=== PATIENT | female | born 1965 | race Caucasian/White ===

== ENCOUNTER 2017-01-23 11:49 | Observation (INO) | payer MEDICAID, SELFPAY ==
[2017-01-23 12:07] VITALS: BMI 25.0
[2017-01-23 12:18] VITALS: BP 141/85; PULSE 66; RESP 16; TEMP 36.9
[2017-01-23 12:22] VITALS: BP 141/85; PULSE 66; RESP 16; TEMP 36.9; O2SAT 100
--- NOTE | 2017-01-23 12:22 | EKG12_ITS ---
Test Reason : Blood Pressure : / mmHG Vent. Rate : 059 BPM Atrial Rate : 059 BPM P-R Int : 128 ms QRS Dur : 084 ms QT Int : 428 ms P-R-T Axes : 047 048 043 degrees QTc Int : 423 ms Sinus bradycardia Otherwise normal ECG No previous ECGs available Confirmed by BALJEET ENGEL ([id number]), publications editor ESTHER SANCHEZ ([id number] on 02/01/2017 1:59:05 PM Referred By: JACKIE Confirmed By:BALJEET ENGEL
--- NOTE | 2017-01-23 12:25 | PCM.HP.STD ---
Problem List (1) Polysubstance (including opioids) dependence w/o physiol dependence Status: Chronic (2) Nicotine dependence Status: Chronic (3) Cocaine abuse Status: Chronic (4) Chronic hepatitis C Status: Acute (5) Opioid dependence with withdrawal Status: Acute History of Present Illness Date of Admission: 01/23/17 Chief Complaint: Opioid dependence and withdrawal The patient is a 51 year old F with history of polysubstance use including IV fentanyl and heroin being admitted through [facility] for stabilization of opioid withdrawal syndrome. Currently patient is having shaking/tremor, involuntary twitchings, restlessness, anxiety and goosebump. Denies diarrhea, chills. She has been tested positive for chronic hepatitis C in the past. She was sober of opioids for 2 years after the previous admission through [facility] in [facility]. [] Past Medical History Past Medical History (Chronic Problems): Chronic Problems Cocaine abuse (Chronic) Nicotine dependence (Chronic) Polysubstance (including opioids) dependence w/o physiol dependence (Chronic) Allergies Sulfa (Sulfonamide Antibiotics) Allergy (Verified 01/23/17 12:05) Rash Home Medications: Ambulatory Orders Medication Instructions Recorded No Known/Unobtainable [No Known 01/23/17 Home Medications] Smoking Status: Current some day smoker - *Family History Paternal History Items: No pertinent history Review of Systems Constitutional: Reports: Malaise, Fatigue. Denies: Chills, Fever, Weight Change HEENT: Denies: Head Aches, Sinus Congestion, Sinus Drainage Cardiovascular: Denies: Chest Pain, Palpitations Respiratory: Denies: Cough, Shortness of breath at rest, Sputum production Gastrointestinal: Denies: Abdominal Pain, Nausea, Vomiting Genitourinary: Denies: Dysuria Musculoskeletal: Reports: Muscle pain. Denies: Joint Pain, Joint Tenderness Skin: Denies: Rash, Wounds Neurological: Denies: Numbness, Tingling, Focal weakness Psychiatric: Reports: Anxiety. Denies: Depression, Homicidal Ideations, Suicidal Ideations Hematologic/ Lymphatic: Denies: Easy Bruising, Easy Bleeding VTE Information - Inpt Only VTE Present on Admission: No VTE Mechan Device Prophylaxis: SCD's VTE Pharm Prophylaxis ordered?: Yes Patient Problems: Active and Suspected Problems Chronic hepatitis C (Acute) Opioid dependence with withdrawal (Acute) - Physical Exam General: Alert, Oriented x3, Cooperative HEENT: Atraumatic, PERRLA, EOMI, Normocephalic Neck: Supple, No JVD, Negative Carotid Bruits Lungs: Clear to auscultation, Normal air movement, No rhonchi, No wheeze, No rales Cardiovascular: Regular rate, Regular Rhythm, Normal S1, Normal S2, No murmurs Abdomen: Bowel Sounds Present, Soft, Non Tender, Non-Distended Extremities: No edema, Capillary Refill Less than 3 Seconds Skin: No rashes, No breakdown Musculoskeletal: No Tenderness to Palpation of Joints or Extremities Neurological: Cranial nerves II-XII grossly intact Psych/Mental Status: Anxious, Restless Vital Signs Temp Pulse Resp BP Pulse Ox 98.5 F 66 16 141/85 100 01/23/17 12:22 01/23/17 12:22 01/23/17 12:22 01/23/17 12:22 01/23/17 12:22 Oxygen Delivery Method Room Air Weight: 79.3 kg Body Mass Index (BMI) 25.0 Assessment/Plan Active and Suspected Problems Chronic hepatitis C (Acute) Opioid dependence with withdrawal (Acute) The patient is a 51 year old F with history of polysubstance use including IV fentanyl and heroin being admitted through [facility] for stabilization of opioid withdrawal syndrome. Currently patient is having shaking/tremor, involuntary twitchings, restlessness, anxiety and goosebump. Denies diarrhea, chills. She has been tested positive for chronic hepatitis C in the past. She was sober of opioids for 2 years after the previous admission through [facility] program in [facility]. 1. Acute opioid withdrawal due to fentanyl and heroine IV use and dependence: She has been admitted as per [facility] protocol for medical stabilization. Started on the order set. Labs ordered. 2. Polysubstance use and dependence including opioids, crack cocaine and nicotine: Denies use of benzodiazepines alcohol. 3. Nicotine dependence: On nicotine patch. DVT prophylaxis, moderate risk: On heparin 5000 units subcu twice daily and bilateral SCDs.
--- NOTE | 2017-01-23 12:32 | HP.PCM_ITS ---
Problem List (1) Polysubstance (including opioids) dependence w/o physiol dependence Status: Chronic (2) Nicotine dependence Status: Chronic (3) Cocaine abuse Status: Chronic (4) Chronic hepatitis C Status: Acute (5) Opioid dependence with withdrawal Status: Acute History of Present Illness Date of Admission: 01/23/17 Chief Complaint: Opioid dependence and withdrawal The patient is a 51 year old F with history of polysubstance use including IV fentanyl and heroin being admitted through [facility] for stabilization of opioid withdrawal syndrome. Currently patient is having shaking/tremor, involuntary twitchings, restlessness, anxiety and goosebump. Denies diarrhea, chills. She has been tested positive for chronic hepatitis C in the past. She was sober of opioids for 2 years after the previous admission through [facility] in [facility]. [] Past Medical History Past Medical History (Chronic Problems): Chronic Problems Cocaine abuse (Chronic) Nicotine dependence (Chronic) Polysubstance (including opioids) dependence w/o physiol dependence (Chronic) Allergies Sulfa (Sulfonamide Antibiotics) Allergy (Verified 01/23/17 12:05) Rash Home Medications: Ambulatory Orders Medication Instructions Recorded No Known/Unobtainable [No Known 01/23/17 Home Medications] Smoking Status: Current some day smoker - *Family History Paternal History Items: No pertinent history Review of Systems Constitutional: Reports: Malaise, Fatigue. Denies: Chills, Fever, Weight Change HEENT: Denies: Head Aches, Sinus Congestion, Sinus Drainage Cardiovascular: Denies: Chest Pain, Palpitations Respiratory: Denies: Cough, Shortness of breath at rest, Sputum production Gastrointestinal: Denies: Abdominal Pain, Nausea, Vomiting Genitourinary: Denies: Dysuria Musculoskeletal: Reports: Muscle pain. Denies: Joint Pain, Joint Tenderness Skin: Denies: Rash, Wounds Neurological: Denies: Numbness, Tingling, Focal weakness Psychiatric: Reports: Anxiety. Denies: Depression, Homicidal Ideations, Suicidal Ideations Hematologic/ Lymphatic: Denies: Easy Bruising, Easy Bleeding VTE Information - Inpt Only VTE Present on Admission: No VTE Mechan Device Prophylaxis: SCD's VTE Pharm Prophylaxis ordered?: Yes Patient Problems: Active and Suspected Problems Chronic hepatitis C (Acute) Opioid dependence with withdrawal (Acute) - Physical Exam General: Alert, Oriented x3, Cooperative HEENT: Atraumatic, PERRLA, EOMI, Normocephalic Neck: Supple, No JVD, Negative Carotid Bruits Lungs: Clear to auscultation, Normal air movement, No rhonchi, No wheeze, No rales Cardiovascular: Regular rate, Regular Rhythm, Normal S1, Normal S2, No murmurs Abdomen: Bowel Sounds Present, Soft, Non Tender, Non-Distended Extremities: No edema, Capillary Refill Less than 3 Seconds Skin: No rashes, No breakdown Musculoskeletal: No Tenderness to Palpation of Joints or Extremities Neurological: Cranial nerves II-XII grossly intact Psych/Mental Status: Anxious, Restless Vital Signs Temp Pulse Resp BP Pulse Ox 98.5 F 66 16 141/85 100 01/23/17 12:22 01/23/17 12:22 01/23/17 12:22 01/23/17 12:22 01/23/17 12:22 Oxygen Delivery Method Room Air Weight: 79.3 kg Body Mass Index (BMI) 25.0 Assessment/Plan Active and Suspected Problems Chronic hepatitis C (Acute) Opioid dependence with withdrawal (Acute) The patient is a 51 year old F with history of polysubstance use including IV fentanyl and heroin being admitted through [facility] for stabilization of opioid withdrawal syndrome. Currently patient is having shaking/tremor, involuntary twitchings, restlessness, anxiety and goosebump. Denies diarrhea, chills. She has been tested positive for chronic hepatitis C in the past. She was sober of opioids for 2 years after the previous admission through [facility] in [facility]. 1. Acute opioid withdrawal due to fentanyl and heroine IV use and dependence: She has been admitted as per [facility] protocol for medical stabilization. Started on the order set. Labs ordered. 2. Polysubstance use and dependence including opioids, crack cocaine and nicotine: Denies use of benzodiazepines alcohol. 3. Nicotine dependence: On nicotine patch. DVT prophylaxis, moderate risk: On heparin 5000 units subcu twice daily and bilateral SCDs.
[2017-01-23] MEDS: cloNIDine HCl 0.1 MG Tablet 0.2 MG PO (12:34)
[2017-01-23] MEDS: chlordiazePOXIDE 25 MG Capsule PO ×3 (12:34→22:28)
[2017-01-23] MEDS: Buprenorphine HCl 2 MG TAB.SUBL SL ×2 (12:34→19:48)
[2017-01-23 12:35] VITALS: BP 141/85; PULSE 66; RESP 16; TEMP 36.9
[2017-01-23] MEDS: QUEtiapine 25 MG Tablet PO ×2 (13:24→22:28)
[2017-01-23] MEDS: Carbidopa/Levodopa 25/100 Tablet PO ×2 (13:24→22:28)
[2017-01-23] MEDS: Thiamine Hydrochloride 100 MG Tablet PO (13:24)
[2017-01-23 13:29] LABS: Mucous, Urine 0 SEEN /hpf (<or=2+); Red Blood Cells-Urine 0 SEEN /hpf (0-5); Squamous Epithelial Cells - UA 0 SEEN /hpf (5-10)
[2017-01-23 13:33] LABS: Color, Urine Yellow (Yellow); Glucose, Dipstick Normal (Normal); Ketone-Dipstick Negative (Negative); Leukocyte Esterase-Dipstick 25 /ul (Negative); Nitrite-Dipstick Negative (Negative); Occult Blood-Urine Negative /ul (Negative); Protein-Dipstick Negative (Negative); Specific Gravity, Urine 1.015 (1.002-1.030); Urine Bilirubin Dipstick Negative (Negative); Urine Clarity Sl. Cloudy (Clear); Urine Urobilinogen Normal (Normal)
[2017-01-23 13:46] LABS: Amorphous Sediment 1+; Bacteria 1+ /hpf (None Seen); White Blood Cells 0-5 SEEN /hpf (0-5)
[2017-01-23 13:52] LABS: Amphetamine Urine VISTA NEGATIVE (<1000 ng/mL); Barbiturate Urine VISTA NEGATIVE (< 200 ng/mL); Benzodiazepine Urine VISTA NEGATIVE (< 200 ng/mL); Cocaine Urine VISTA NEGATIVE (< 300 ng/mL); Ecstacy Urine VISTA NEGATIVE (< 500 ng/mL); Methadone Urine VISTA NEGATIVE (< 300 ng/mL); PCP Urine VISTA NEGATIVE (< 25 ng/mL); THC Urine VISTA POSITIVE (< 50 ng/mL); Vista UDS pH Range 7
--- NOTE | 2017-01-23 17:08 | CHAPLAIN ---
Type of Pastoral Visit _x__ Initial Visit ___ Follow-up Visit ___ On-call Visit ___ General Patient Visit ___ Spiritual Assessment ___ Family Conference ___ Bereavement ___ Rapid Response ___ Code Blue ___ Other (describe below) Pastoral Care Referral From _x__ Patient ___ Family ___ Nurse ___ Physician ___ Basketball Player ___ Greenhouse Superintendent ___ Other (describe below) Sacrament/Intervention _x__ Active listening ___ Anointing ___ Sikh ___ Bereavement ___ Communion _x__ Safia exploration ___ _x__ Life review _x__ Prayer ___ Reconciliation ___ Sacrament of Sick _x__ Supportive presence ___ Wedding ___ Other (describe below) Pastoral Comments
[2017-01-23 17:13] VITALS: BP 116/73; PULSE 63; RESP 16; TEMP 36.9; O2SAT 100
[2017-01-23 17:21] LABS: Absolute Neutrophil Count 4.3 X10^3/uL (2.0-7.7); Basophil# 0.02 X10^3/uL; Basophil% 0.3 % (0-1); Eosinophil# 0.01 X10^3/uL; Eosinophils% 0.2 % (0-5); Hematocrit 39.1 % (37-47); Hemoglobin 13.3 g/dl (12.0-15.0); Lymphocyte % 25.5 % (19-41); Mean Corpuscular Hgb 30.4 pg (27.0-32.0); Mean Corpuscular Volume 89.5 fL (81-99); Mean Platelet Vol. 9.8 fl (6.2-12.0); Monocyte# 0.37 X10^3/uL; Monocyte% 5.9 % (0-10); Neutrophil # 4.27 X10^3/uL (2.7-7.7); Neutrophil % 68.1 % (47-70); Platelet Count 319 K/mm3 (150-450); RBC Distribution Width SD 38.5 fl (35.1-43.9); Red Blood Count 4.37 M/mm3 (4.2-5.4); White Blood Count 6.3 K/mm3 (4.4-11.0)
[2017-01-23 17:25] LABS: POSITIVE COUNT NO; POSITIVE DIFFERENTIAL NO; POSITIVE MORPHOLOGY NO
[2017-01-23 17:28] LABS: International Normalized Ratio 1.1; Prothrombin Time (Protime)PT. 13.5 SECONDS (11.7-14.9)
[2017-01-23 17:40] LABS: AST(SGOT) 12 U/L (15-37); Alanine Aminotransfer ALT/SGPT 9 U/L (12-78); Alkaline Phosphatase 79 U/L (45-117); Amylase 43 U/L (25-115); Anion Gap 10 (5-15); BUN 10 mg/dL (7-18); BUN/Creat Ratio 11.5 RATIO (10-20); Calcium,Total 9.3 mg/dL (8.5-10.1); Chloride 103 mmol/L (98-107); Creatinine, Serum 0.87 mg/dL (0.55-1.02); EST Glomerular Filtration Rate 73 mL/min (>60); Est Glom Filt Rate - Afr Amer 89 mL/min (>60); Estimated Creatinine Clearance 83.66 ml/min; Globulin 4.2 g/dL (2.2-4.2); Glucose 111 mg/dL (70-110); Lipase 161 U/L (73-393); Potassium 3.4 mmol/L (3.5-5.1); Protein, Total 8.2 g/dL (6.4-8.2); Sodium Level 140 mmol/L (136-145)
[2017-01-23 18:01] LABS: Pregnancy, Serum, hCG Quali. NEGATIVE Negative (0-9 Nonpreg)
[2017-01-23 18:04] LABS: Alcohol, Blood (Medical)-Serum < 3.0 mg/dL
[2017-01-23 22:19] VITALS: BP 118/76; PULSE 59; RESP 16; TEMP 36.9
[2017-01-23] MEDS: traZODone 50 MG Tablet PO (22:27)
[2017-01-23] MEDS: Methocarbamol 750 MG Tablet PO (22:27)
[2017-01-23] MEDS: Ibuprofen 400 MG Tablet 800 MG PO (22:28)
[2017-01-23] MEDS: Heparin Injection 5,000 UNITS/ML Syringe 5000 UNITS SC (22:28)
[2017-01-24 01:51] VITALS: BP 101/65; PULSE 60; RESP 18; TEMP 36.9
[2017-01-24] MEDS: chlordiazePOXIDE 25 MG Capsule PO ×4 (02:00→16:32)
[2017-01-24] MEDS: Acetaminophen 325 MG Tablet 650 MG PO (02:01)
--- NOTE | 2017-01-24 02:02 | NURSING ---
Pt c/o she can not sleep. Asked if white noise would help, fan provided.
[2017-01-24 05:13] VITALS: BP 97/59; PULSE 56; RESP 18; TEMP 36.3
[2017-01-24] MEDS: Buprenorphine HCl 2 MG TAB.SUBL SL ×3 (05:16→21:45)
[2017-01-24] MEDS: QUEtiapine 25 MG Tablet PO ×3 (05:19→23:18)
[2017-01-24] MEDS: Methocarbamol 750 MG Tablet PO ×3 (05:19→21:45)
[2017-01-24] MEDS: Ibuprofen 400 MG Tablet 800 MG PO (05:20)
[2017-01-24 07:49] VITALS: BP 94/56; PULSE 63; RESP 16; TEMP 36.7; O2SAT 98
[2017-01-24] MEDS: Folic Acid 1 MG Tablet PO (09:23)
[2017-01-24] MEDS: Multivitamins,Ther W-Minerals Tablet 1 TABLET PO (09:23)
[2017-01-24] MEDS: Thiamine Hydrochloride 100 MG Tablet PO (09:23)
[2017-01-24] MEDS: Carbidopa/Levodopa 25/100 Tablet PO ×2 (09:25→23:18)
[2017-01-24] MEDS: Heparin Injection 5,000 UNITS/ML Syringe 5000 UNITS SC ×2 (09:25→21:49)
[2017-01-24 11:55] VITALS: BP 117/70; PULSE 73; RESP 16; TEMP 37; O2SAT 99
--- NOTE | 2017-01-24 13:43 | PCM.PN.HOSP ---
Patient Problems: Active and Suspected Problems Chronic hepatitis C (Acute) Opioid dependence with withdrawal (Acute) Subjective: The patient has been feeling restless and anxiety. Vitals/I&O's: Vital Signs Temp Pulse Resp BP Pulse Ox 98.6 F 73 16 117/70 99 01/24/17 11:55 01/24/17 11:55 01/24/17 11:55 01/24/17 11:55 01/24/17 11:55 Oxygen Delivery Method Room Air Weight: 79.3 kg Body Mass Index (BMI) 25.0 Intake and Output for Last 24 Hours 01/22/17 01/23/17 01/24/17 23:59 23:59 23:59 Intake Total 500 870 Balance 500 870 General: Alert, Oriented x3, Cooperative HEENT: Atraumatic, PERRLA, EOMI, Normocephalic Neck: Supple, No JVD, Negative Carotid Bruits Lungs: Clear to auscultation, Normal air movement, No rhonchi, No wheeze, No rales Cardiovascular: Regular rate, Regular Rhythm, Normal S1, Normal S2, No murmurs Abdomen: Bowel Sounds Present, Soft, Non Tender, Non-Distended Extremities: No edema, Capillary Refill Less than 3 Seconds Skin: No rashes, No breakdown Musculoskeletal: No Tenderness to Palpation of Joints or Extremities Neurological: Cranial nerves II-XII grossly intact Psych/Mental Status: Normal Affect, Appropriate Laboratory Results 01/23/17 13:15: Urine Opiates Screen NEGATIVE, Urine Methadone Screen NEGATIVE, Ur Barbiturates Screen NEGATIVE, Ur Phencyclidine Scrn NEGATIVE, Ur Amphetamines Screen NEGATIVE, U Methamphetamin-MDMA NEGATIVE, U Benzodiazepines Scrn NEGATIVE, Urine Cocaine Screen NEGATIVE, U Cannabinoids Screen POSITIVE H 01/23/17 13:15: Urine Color Yellow, Urine Clarity Sl. Cloudy, Urine pH 8.0, Ur Specific [place] 1.015, Urine Protein Negative, Urine Glucose (UA) Normal, Urine Ketones Negative, Urine Occult Blood Negative, Urine Nitrite Negative, Urine Bilirubin Negative, Urine Urobilinogen Normal, Ur Leukocyte Esterase 25 H, Urine RBC 0 SEEN, Urine WBC 0-5 SEEN, Ur Squamous Epith Cells 0 SEEN, Amorphous Sediment 1+, Urine Bacteria 1+, Urine Mucus 0 SEEN 01/23/17 16:58: Sodium 140, Potassium 3.4 L, Chloride 103, Carbon Dioxide 27.0, Anion Gap 10, BUN 10, Creatinine 0.87, Estim Creat Clear Calc 83.66, Est GFR (MDRD) Af Amer 89, Est GFR (MDRD) Non-Af 73, BUN/Creatinine Ratio 11.5, Glucose 111 H, Calcium 9.3, Total Bilirubin 0.50, AST 12 L, ALT 9 L, Alkaline Phosphatase 79, Total Protein 8.2, Albumin 4.0, Globulin 4.2, Albumin/Globulin Ratio 1.0, Amylase 43, Lipase 161 01/23/17 16:58: Ethyl Alcohol < 3.0 01/23/17 16:58: WBC 6.3, RBC 4.37, Hgb 13.3, Hct 39.1, MCV 89.5, MCH 30.4, MCHC 34.0, RDW 12.0, RDW Differential 38.5, Plt Count 319, MPV 9.8, Immature Gran % (Auto) 0.000, Neut % (Auto) 68.1, Lymph % (Auto) 25.5, [place] % (Auto) 5.9, Eos % (Auto) 0.2, Baso % (Auto) 0.3, Absolute Neuts (auto) 4.3, Absolute Lymphs (auto) 1.60, Total Counted Not Reportable 01/23/17 16:58: PT 13.5, INR 1.1 01/23/17 16:58: Serum , Qual NEGATIVE 01/23/17 16:58: Hepatitis A IgM Ab Pending, Hep Bs Antigen Pending, Hep B Core IgM Ab Pending, Hepatitis C Ab (EIA) Pending Current Medications Acetaminophen (Tylenol) 650 mg PO Q4H PRN PRN PRN Reason: Temp>99.1F Last Admin: 01/24/17 02:01 Dose: 650 mg Al Hydroxide/Mg Hydroxide (Mylanta Ii) 30 ml PO Q6H PRN PRN PRN Reason: dyspesia Bisacodyl (Dulcolax) 10 mg RECTAL DAILY PRN PRN Reason: Constipation Buprenorphine HCl (Buprenorphine Hcl) 2 mg SL Q8H LEAH PRN Reason: Taper Stop: 01/26/17 16:29 Last Admin: 01/24/17 11:52 Dose: 2 mg Carbidopa/Levodopa (Sinemet) 1 tablet PO Q8H PRN PRN PRN Reason: RESTLESSNESS Last Admin: 01/24/17 09:25 Dose: 1 tablet Chlordiazepoxide (Librium) 25 mg PO Q6H PRN PRN PRN Reason: Mod-Sev Anxiety (score 2-3/3) Clonidine (Catapres) 0.1 mg PO Q2H PRN PRN Reason: Hot/Cold Sweats or Anxiety Dicyclomine HCl (Bentyl) 20 mg PO Q6H PRN PRN PRN Reason: Abdomnial Discomfort Folic Acid (Folic Acid) 1 mg PO DAILY@0800 [facility] Last Admin: 01/24/17 09:23 Dose: 1 mg Heparin Sodium (Porcine) () 5,000 units SC BID [facility] Last Admin: 01/24/17 09:25 Dose: 5,000 units Hydroxyzine Pamoate (Vistaril) 50 mg PO Q6H PRN PRN PRN Reason: Mild Anxiety (score 1/3) Last Admin: 01/24/17 02:00 Dose: 50 mg Ibuprofen (Motrin) 800 mg PO Q8H PRN PRN PRN Reason: Mild-Moderate Pain (1-5/10) Last Admin: 01/24/17 05:20 Dose: 800 mg Loperamide HCl (Imodium) 2 - 4 mg PO UD PRN PRN Reason: LOOSE STOOLS Methocarbamol (Methocarbamol) 750 mg PO 4X/DAY PRN PRN Reason: Muscle Aches Last Admin: 01/24/17 11:52 Dose: 750 mg [facility]ivitamins/Minerals ([facility]) [facility] Last Admin: 01/24/17 09:23 Dose: 1 tablet Nicotine (Nicoderm Cq (Pbkc)) 21 mg TRANSDERM. DAILY [facility] Last Admin: 01/24/17 09:24 Dose: 21 mg Ondansetron HCl (Zofran Odt) 4 mg PO Q6H PRN PRN PRN Reason: NAUSEA Quetiapine Fumarate (Seroquel) 25 mg PO Q6H PRN PRN PRN Reason: Moderate Anxiety (score 2/3) Last Admin: 01/24/17 11:52 Dose: 25 mg Senna (Senokot) 1 tablet PO QHS PRN PRN Reason: Constipation Sodium Chloride () 5 - 30 ml IV UD PRN PRN Reason: SALINE FLUSH Thiamine HCl (Vitamin B1) 100 mg PO DAILYCM [facility] Last Admin: 01/24/17 09:23 Dose: 100 mg Trazodone HCl (Desyrel) 50 mg PO QHS [facility] Last Admin: 01/23/17 22:27 Dose: 50 mg Assessment/Plan Active and Suspected Problems Chronic hepatitis C (Acute) Opioid dependence with withdrawal (Acute) The patient is a 51 year old F with history of polysubstance use including IV fentanyl and heroin being admitted through [facility] for stabilization of opioid withdrawal syndrome. Currently patient is having shaking/tremor, involuntary twitchings, restlessness, anxiety and goosebump. Denies diarrhea, chills. She has been tested positive for chronic hepatitis C in the past. She was sober of opioids for 2 years after the previous admission through [facility] in [facility]. 1. Acute opioid withdrawal due to fentanyl and heroine IV use and dependence: She has been admitted as per [facility] protocol for medical stabilization. Started on the order set. Labs reviewed. U tox shows cannabinoids. Viral hepatitis profile pending Mild hypokalemia. Potassium being replaced. 2. Polysubstance use and dependence including opioids, crack cocaine and nicotine: Denies use of benzodiazepines alcohol. 3. Nicotine dependence: On nicotine patch. DVT prophylaxis, moderate risk: On heparin 5000 units subcut twice daily and bilateral SCDs.
--- NOTE | 2017-01-24 13:48 | PN_ITS ---
Patient Problems: Active and Suspected Problems Chronic hepatitis C (Acute) Opioid dependence with withdrawal (Acute) Subjective: The patient has been feeling restless and anxiety. Vitals/I&O's: Vital Signs Temp Pulse Resp BP Pulse Ox 98.6 F 73 16 117/70 99 01/24/17 11:55 01/24/17 11:55 01/24/17 11:55 01/24/17 11:55 01/24/17 11:55 Oxygen Delivery Method Room Air Weight: 79.3 kg Body Mass Index (BMI) 25.0 Intake and Output for Last 24 Hours 01/22/17 01/23/17 01/24/17 23:59 23:59 23:59 Intake Total 500 870 Balance 500 870 General: Alert, Oriented x3, Cooperative HEENT: Atraumatic, PERRLA, EOMI, Normocephalic Neck: Supple, No JVD, Negative Carotid Bruits Lungs: Clear to auscultation, Normal air movement, No rhonchi, No wheeze, No rales Cardiovascular: Regular rate, Regular Rhythm, Normal S1, Normal S2, No murmurs Abdomen: Bowel Sounds Present, Soft, Non Tender, Non-Distended Extremities: No edema, Capillary Refill Less than 3 Seconds Skin: No rashes, No breakdown Musculoskeletal: No Tenderness to Palpation of Joints or Extremities Neurological: Cranial nerves II-XII grossly intact Psych/Mental Status: Normal Affect, Appropriate Laboratory Results 01/23/17 13:15: Urine Opiates Screen NEGATIVE, Urine Methadone Screen NEGATIVE, Ur Barbiturates Screen NEGATIVE, Ur Phencyclidine Scrn NEGATIVE, Ur Amphetamines Screen NEGATIVE, U Methamphetamin-MDMA NEGATIVE, U Benzodiazepines Scrn NEGATIVE, Urine Cocaine Screen NEGATIVE, U Cannabinoids Screen POSITIVE H 01/23/17 13:15: Urine Color Yellow, Urine Clarity Sl. Cloudy, Urine pH 8.0, Ur Specific [place] 1.015, Urine Protein Negative, Urine Glucose (UA) Normal, Urine Ketones Negative, Urine Occult Blood Negative, Urine Nitrite Negative, Urine Bilirubin Negative, Urine Urobilinogen Normal, Ur Leukocyte Esterase 25 H , Urine RBC 0 SEEN, Urine WBC 0-5 SEEN, Ur Squamous Epith Cells 0 SEEN, Amorphous Sediment 1+, Urine Bacteria 1+, Urine Mucus 0 SEEN 01/23/17 16:58: Sodium 140, Potassium 3.4 L, Chloride 103, Carbon Dioxide 27.0, Anion Gap 10, BUN 10, Creatinine 0.87, Estim Creat Clear Calc 83.66, Est GFR ( MDRD) Af Amer 89, Est GFR (MDRD) Non-Af 73, BUN/Creatinine Ratio 11.5, Glucose 111 H, Calcium 9.3, Total Bilirubin 0.50, AST 12 L, ALT 9 L, Alkaline Phosphatase 79, Total Protein 8.2, Albumin 4.0, Globulin 4.2, Albumin/Globulin Ratio 1.0, Amylase 43, Lipase 161 01/23/17 16:58: Ethyl Alcohol < 3.0 01/23/17 16:58: WBC 6.3, RBC 4.37, Hgb 13.3, Hct 39.1, MCV 89.5, MCH 30.4, MCHC 34.0, RDW 12.0, RDW Differential 38.5, Plt Count 319, MPV 9.8, Immature Gran % ( Auto) 0.000, Neut % (Auto) 68.1, Lymph % (Auto) 25.5, [place] % (Auto) 5.9, Eos % ( Auto) 0.2, Baso % (Auto) 0.3, Absolute Neuts (auto) 4.3, Absolute Lymphs (auto) 1.60, Total Counted Not Reportable 01/23/17 16:58: PT 13.5, INR 1.1 01/23/17 16:58: Serum , Qual NEGATIVE 01/23/17 16:58: Hepatitis A IgM Ab Pending, Hep Bs Antigen Pending, Hep B Core IgM Ab Pending, Hepatitis C Ab (EIA) Pending Current Medications Acetaminophen (Tylenol) 650 mg PO Q4H PRN PRN PRN Reason: Temp>99.1F Last Admin: 01/24/17 02:01 Dose: 650 mg Al Hydroxide/Mg Hydroxide (Mylanta Ii) 30 ml PO Q6H PRN PRN PRN Reason: dyspesia Bisacodyl (Dulcolax) 10 mg RECTAL DAILY PRN PRN Reason: Constipation Buprenorphine HCl (Buprenorphine Hcl) 2 mg SL Q8H LEAH PRN Reason: Taper Stop: 01/26/17 16:29 Last Admin: 01/24/17 11:52 Dose: 2 mg Carbidopa/Levodopa (Sinemet) 1 tablet PO Q8H PRN PRN PRN Reason: RESTLESSNESS Last Admin: 01/24/17 09:25 Dose: 1 tablet Chlordiazepoxide (Librium) 25 mg PO Q6H PRN PRN PRN Reason: Mod-Sev Anxiety (score 2-3/3) Clonidine (Catapres) 0.1 mg PO Q2H PRN PRN Reason: Hot/Cold Sweats or Anxiety Dicyclomine HCl (Bentyl) 20 mg PO Q6H PRN PRN PRN Reason: Abdomnial Discomfort Folic Acid (Folic Acid) 1 mg PO DAILY@0800 [facility] Last Admin: 01/24/17 09:23 Dose: 1 mg Heparin Sodium (Porcine) () 5,000 units SC BID [facility] Last Admin: 01/24/17 09:25 Dose: 5,000 units Hydroxyzine Pamoate (Vistaril) 50 mg PO Q6H PRN PRN PRN Reason: Mild Anxiety (score 1/3) Last Admin: 01/24/17 02:00 Dose: 50 mg Ibuprofen (Motrin) 800 mg PO Q8H PRN PRN PRN Reason: Mild-Moderate Pain (1-5/10) Last Admin: 01/24/17 05:20 Dose: 800 mg Loperamide HCl (Imodium) 2 - 4 mg PO UD PRN PRN Reason: LOOSE STOOLS Methocarbamol (Methocarbamol) 750 mg PO 4X/DAY PRN PRN Reason: Muscle Aches Last Admin: 01/24/17 11:52 Dose: 750 mg Multivitamins/Minerals ([facility]ivitamin With Minerals) [facility] Last Admin: 01/24/17 09:23 Dose: 1 tablet Nicotine (Nicoderm Cq (Pbkc)) 21 mg TRANSDERM. DAILY [facility] Last Admin: 01/24/17 09:24 Dose: 21 mg Ondansetron HCl (Zofran Odt) 4 mg PO Q6H PRN PRN PRN Reason: NAUSEA Quetiapine Fumarate (Seroquel) 25 mg PO Q6H PRN PRN PRN Reason: Moderate Anxiety (score 2/3) Last Admin: 01/24/17 11:52 Dose: 25 mg Senna (Senokot) 1 tablet PO QHS PRN PRN Reason: Constipation Sodium Chloride () 5 - 30 ml IV UD PRN PRN Reason: SALINE FLUSH Thiamine HCl (Vitamin B1) 100 mg PO DAILYCM [facility] Last Admin: 01/24/17 09:23 Dose: 100 mg Trazodone HCl (Desyrel) 50 mg PO QHS [facility] Last Admin: 01/23/17 22:27 Dose: 50 mg Assessment/Plan Active and Suspected Problems Chronic hepatitis C (Acute) Opioid dependence with withdrawal (Acute) The patient is a 51 year old F with history of polysubstance use including IV fentanyl and heroin being admitted through [facility] for stabilization of opioid withdrawal syndrome. Currently patient is having shaking/tremor, involuntary twitchings, restlessness, anxiety and goosebump. Denies diarrhea, chills. She has been tested positive for chronic hepatitis C in the past. She was sober of opioids for 2 years after the previous admission through [facility] in [facility]. 1. Acute opioid withdrawal due to fentanyl and heroine IV use and dependence: She has been admitted as per [facility] protocol for medical stabilization. Started on the order set. Labs reviewed. U tox shows cannabinoids. Viral hepatitis profile pending Mild hypokalemia. Potassium being replaced. 2. Polysubstance use and dependence including opioids, crack cocaine and nicotine: Denies use of benzodiazepines alcohol. 3. Nicotine dependence: On nicotine patch. DVT prophylaxis, moderate risk: On heparin 5000 units subcut twice daily and bilateral SCDs.
[2017-01-24 16:27] VITALS: BP 92/58; PULSE 80; RESP 16; TEMP 36.6; O2SAT 99
[2017-01-24] MEDS: cloNIDine HCl 0.1 MG Tablet PO (16:32)
--- NOTE | 2017-01-24 16:57 | CHAPLAIN ---
Type of Pastoral Visit ___ Initial Visit _x__ Follow-up Visit ___ On-call Visit ___ General Patient Visit ___ Spiritual Assessment ___ Family Conference ___ Bereavement ___ Rapid Response ___ Code Blue ___ Other (describe below) Pastoral Care Referral From _x__ Patient ___ Family ___ Nurse ___ Physician ___ Finance Advisor ___ Charge Gang Weigher ___ Other (describe below) Sacrament/Intervention ___ Active listening ___ Anointing ___ Jehovah'S Witness ___ Bereavement ___ Communion ___ Safia exploration ___ ___ Life review ___ Prayer ___ Reconciliation ___ Sacrament of Sick _x__ Supportive presence ___ Wedding ___ Other (describe below) Pastoral Comments patient reports feeling better today; pt has hand projects that she brought to occupy herself while admitted; pt showed me what she was working on; no other needs apparent at this time
[2017-01-24] MEDS: traZODone 50 MG Tablet PO (21:45)
[2017-01-24 22:00] VITALS: BP 97/84; PULSE 67; RESP 18; TEMP 36.8
[2017-01-25] VITALS (8 sets, daily range): BP systolic 90–120; BP diastolic 56–70; PULSE 61–79; RESP 18; TEMP 35.8–36.9; O2SAT 100
[2017-01-25] MEDS: Methocarbamol 750 MG Tablet PO (04:43)
[2017-01-25] MEDS: Buprenorphine HCl 2 MG TAB.SUBL SL ×2 (04:43→16:33)
[2017-01-25 05:07] LABS: HEPATITIS B SURFACE AG Negative (Negative); Hepatitis A IgM Antibody Negative (Negative); Hepatitis B Core AB IgM Negative (Negative)
[2017-01-25 06:54] LABS: Hep C Antibodies >11.0 s/co ratio (0.0-0.9)
[2017-01-25] MEDS: Folic Acid 1 MG Tablet PO (08:22)
[2017-01-25] MEDS: Thiamine Hydrochloride 100 MG Tablet PO (08:22)
[2017-01-25] MEDS: Multivitamins,Ther W-Minerals Tablet 1 TABLET PO (08:22)
[2017-01-25] MEDS: Ibuprofen 400 MG Tablet 800 MG PO ×2 (08:22→21:15)
[2017-01-25] MEDS: Heparin Injection 5,000 UNITS/ML Syringe 5000 UNITS SC ×2 (10:48→21:16)
--- NOTE | 2017-01-25 15:59 | PCM.PN.HOSP ---
Patient Problems: Active and Suspected Problems Chronic hepatitis C (Acute) Opioid dependence with withdrawal (Acute) Subjective: Patient feels much better. Her symptoms of restlessness, anxiety and tremors have much improved. Vitals/I&O's: Vital Signs Temp Pulse Resp BP Pulse Ox 98.4 F 74 18 100/66 100 01/25/17 14:15 01/25/17 14:15 01/25/17 14:15 01/25/17 14:15 01/25/17 14:15 Oxygen Delivery Method Room Air Weight: 79.3 kg Body Mass Index (BMI) 25.0 Intake and Output for Last 24 Hours 01/23/17 01/24/17 01/25/17 23:59 23:59 23:59 Intake Total 500 1470 1000 Balance 500 1470 1000 General: Alert, Oriented x3, Cooperative HEENT: Atraumatic, PERRLA, EOMI, Normocephalic Neck: Supple, No JVD, Negative Carotid Bruits Lungs: Clear to auscultation, Normal air movement, No rhonchi, No wheeze, No rales Cardiovascular: Regular rate, Regular Rhythm, Normal S1, Normal S2, No murmurs Abdomen: Bowel Sounds Present, Soft, Non Tender, Non-Distended Extremities: No edema, Capillary Refill Less than 3 Seconds Skin: No rashes, No breakdown Musculoskeletal: No Tenderness to Palpation of Joints or Extremities Neurological: Cranial nerves II-XII grossly intact Psych/Mental Status: Normal Affect, Appropriate Laboratory Results 01/23/17 16:58: Hepatitis A IgM Ab Negative, Hep Bs Antigen Negative, Hep B Core IgM Ab Negative, Hepatitis C Ab (EIA) >11.0 H Current Medications Acetaminophen (Tylenol) 650 mg PO Q4H PRN PRN PRN Reason: Temp>99.1F Last Admin: 01/24/17 02:01 Dose: 650 mg Al Hydroxide/Mg Hydroxide (Mylanta Ii) 30 ml PO Q6H PRN PRN PRN Reason: dyspesia Bisacodyl (Dulcolax) 10 mg RECTAL DAILY PRN PRN Reason: Constipation Buprenorphine HCl (Buprenorphine Hcl) 2 mg SL Q12H LEAH PRN Reason: Taper Stop: 01/26/17 16:29 Last Admin: 01/25/17 04:43 Dose: 2 mg Carbidopa/Levodopa (Sinemet) 1 tablet PO Q8H PRN PRN PRN Reason: RESTLESSNESS Last Admin: 01/24/17 23:18 Dose: 1 tablet Chlordiazepoxide (Librium) 25 mg PO Q6H PRN PRN PRN Reason: Mod-Sev Anxiety (score 2-3/3) Last Admin: 01/24/17 16:32 Dose: 25 mg Clonidine (Catapres) 0.1 mg PO Q2H PRN PRN Reason: Hot/Cold Sweats or Anxiety Last Admin: 01/24/17 16:32 Dose: 0.1 mg Dicyclomine HCl (Bentyl) 20 mg PO Q6H PRN PRN PRN Reason: Abdomnial Discomfort Folic Acid (Folic Acid) 1 mg PO DAILY@0800 [facility] Last Admin: 01/25/17 08:22 Dose: 1 mg Heparin Sodium (Porcine) () 5,000 units SC BID [facility] Last Admin: 01/25/17 10:48 Dose: 5,000 units Hydroxyzine Pamoate (Vistaril) 50 mg PO Q6H PRN PRN PRN Reason: Mild Anxiety (score 1/3) Last Admin: 01/24/17 21:45 Dose: 50 mg Ibuprofen (Motrin) 800 mg PO Q8H PRN PRN PRN Reason: Mild-Moderate Pain (1-5/10) Last Admin: 01/25/17 08:22 Dose: 800 mg Loperamide HCl (Imodium) 2 - 4 mg PO UD PRN PRN Reason: LOOSE STOOLS Methocarbamol (Methocarbamol) 750 mg PO 4X/DAY PRN PRN Reason: Muscle Aches Last Admin: 01/25/17 04:43 Dose: 750 mg [facility]ivitamins/Minerals ([facility]) [facility] Last Admin: 01/25/17 08:22 Dose: 1 tablet Nicotine (Nicoderm Cq (Pbkc)) 21 mg TRANSDERM. DAILY [facility] Last Admin: 01/25/17 10:48 Dose: 21 mg Ondansetron HCl (Zofran Odt) 4 mg PO Q6H PRN PRN PRN Reason: NAUSEA Quetiapine Fumarate (Seroquel) 25 mg PO Q6H PRN PRN PRN Reason: Moderate Anxiety (score 2/3) Last Admin: 01/24/17 23:18 Dose: 25 mg Senna (Senokot) 1 tablet PO QHS PRN PRN Reason: Constipation Sodium Chloride () 5 - 30 ml IV UD PRN PRN Reason: SALINE FLUSH Thiamine [facility] ([facility]itamin B[facility]) [facility] Last Admin: 01/25/17 08:22 Dose: 100 mg Trazodone HCl (Desyrel) 50 mg PO QHS [facility] Last Admin: 01/24/17 21:45 Dose: 50 mg Assessment/Plan Active and Suspected Problems Chronic hepatitis C (Acute) Opioid dependence with withdrawal (Acute) The patient is a 51 year old F with history of polysubstance use including IV fentanyl and heroin being admitted through [facility] for stabilization of opioid withdrawal syndrome. Currently patient is having shaking/tremor, involuntary twitchings, restlessness, anxiety and goosebump. Denies diarrhea, chills. She has been tested positive for chronic hepatitis C in the past. She was sober of opioids for 2 years after the previous admission through [facility] in [facility]. 1. Acute opioid withdrawal due to fentanyl and heroine IV use and dependence: She has been admitted as per [facility] protocol for medical stabilization. Started on the order set. Labs reviewed. U tox shows cannabinoids. Viral hepatitis profile pending Mild hypokalemia. Potassium being replaced. 2. Polysubstance use and dependence including opioids, crack cocaine and nicotine: Denies use of benzodiazepines alcohol. 3. Nicotine dependence: On nicotine patch. Chronic hepatitis C: Hepatitis C antibody is positive. Needs further hepatitis C workup including hepatitis C viral load quantitative and treatment as an outpatient. DVT prophylaxis, moderate risk: On heparin 5000 units subcut twice daily and bilateral SCDs. 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
--- NOTE | 2017-01-25 16:04 | PN_ITS ---
Patient Problems: Active and Suspected Problems Chronic hepatitis C (Acute) Opioid dependence with withdrawal (Acute) Subjective: Patient feels much better. Her symptoms of restlessness, anxiety and tremors have much improved. Vitals/I&O's: Vital Signs Temp Pulse Resp BP Pulse Ox 98.4 F 74 18 100/66 100 01/25/17 14:15 01/25/17 14:15 01/25/17 14:15 01/25/17 14:15 01/25/17 14:15 Oxygen Delivery Method Room Air Weight: 79.3 kg Body Mass Index (BMI) 25.0 Intake and Output for Last 24 Hours 01/23/17 01/24/17 01/25/17 23:59 23:59 23:59 Intake Total 500 1470 1000 Balance 500 1470 1000 General: Alert, Oriented x3, Cooperative HEENT: Atraumatic, PERRLA, EOMI, Normocephalic Neck: Supple, No JVD, Negative Carotid Bruits Lungs: Clear to auscultation, Normal air movement, No rhonchi, No wheeze, No rales Cardiovascular: Regular rate, Regular Rhythm, Normal S1, Normal S2, No murmurs Abdomen: Bowel Sounds Present, Soft, Non Tender, Non-Distended Extremities: No edema, Capillary Refill Less than 3 Seconds Skin: No rashes, No breakdown Musculoskeletal: No Tenderness to Palpation of Joints or Extremities Neurological: Cranial nerves II-XII grossly intact Psych/Mental Status: Normal Affect, Appropriate Laboratory Results 01/23/17 16:58: Hepatitis A IgM Ab Negative, Hep Bs Antigen Negative, Hep B Core IgM Ab Negative, Hepatitis C Ab (EIA) >11.0 H Current Medications Acetaminophen (Tylenol) 650 mg PO Q4H PRN PRN PRN Reason: Temp>99.1F Last Admin: 01/24/17 02:01 Dose: 650 mg Al Hydroxide/Mg Hydroxide (Mylanta Ii) 30 ml PO Q6H PRN PRN PRN Reason: dyspesia Bisacodyl (Dulcolax) 10 mg RECTAL DAILY PRN PRN Reason: Constipation Buprenorphine HCl (Buprenorphine Hcl) 2 mg SL Q12H LEAH PRN Reason: Taper Stop: 01/26/17 16:29 Last Admin: 01/25/17 04:43 Dose: 2 mg Carbidopa/Levodopa (Sinemet) 1 tablet PO Q8H PRN PRN PRN Reason: RESTLESSNESS Last Admin: 01/24/17 23:18 Dose: 1 tablet Chlordiazepoxide (Librium) 25 mg PO Q6H PRN PRN PRN Reason: Mod-Sev Anxiety (score 2-3/3) Last Admin: 01/24/17 16:32 Dose: 25 mg Clonidine (Catapres) 0.1 mg PO Q2H PRN PRN Reason: Hot/Cold Sweats or Anxiety Last Admin: 01/24/17 16:32 Dose: 0.1 mg Dicyclomine HCl (Bentyl) 20 mg PO Q6H PRN PRN PRN Reason: Abdomnial Discomfort Folic Acid (Folic Acid) 1 mg PO DAILY@0800 [facility] Last Admin: 01/25/17 08:22 Dose: 1 mg Heparin Sodium (Porcine) () 5,000 units SC BID [facility] Last Admin: 01/25/17 10:48 Dose: 5,000 units Hydroxyzine Pamoate (Vistaril) 50 mg PO Q6H PRN PRN PRN Reason: Mild Anxiety (score 1/3) Last Admin: 01/24/17 21:45 Dose: 50 mg Ibuprofen (Motrin) 800 mg PO Q8H PRN PRN PRN Reason: Mild-Moderate Pain (1-5/10) Last Admin: 01/25/17 08:22 Dose: 800 mg Loperamide HCl (Imodium) 2 - 4 mg PO UD PRN PRN Reason: LOOSE STOOLS Methocarbamol (Methocarbamol) 750 mg PO 4X/DAY PRN PRN Reason: Muscle Aches Last Admin: 01/25/17 04:43 Dose: 750 mg Multivitamins/Minerals ([facility]amin [facility]) [facility] Last Admin: 01/25/17 08:22 Dose: 1 tablet Nicotine (Nicoderm Cq (Pbkc)) 21 mg TRANSDERM. DAILY [facility] Last Admin: 01/25/17 10:48 Dose: 21 mg Ondansetron HCl (Zofran Odt) 4 mg PO Q6H PRN PRN PRN Reason: NAUSEA Quetiapine Fumarate (Seroquel) 25 mg PO Q6H PRN PRN PRN Reason: Moderate Anxiety (score 2/3) Last Admin: 01/24/17 23:18 Dose: 25 mg Senna (Senokot) 1 tablet PO QHS PRN PRN Reason: Constipation Sodium Chloride () 5 - 30 ml IV UD PRN PRN Reason: SALINE FLUSH Thiamine HCl (Vitamin B1) [facility] Last Admin: 01/25/17 08:22 Dose: 100 mg Trazodone HCl (Desyrel) 50 mg PO QHS [facility] Last Admin: 01/24/17 21:45 Dose: 50 mg Assessment/Plan Active and Suspected Problems Chronic hepatitis C (Acute) Opioid dependence with withdrawal (Acute) The patient is a 51 year old F with history of polysubstance use including IV fentanyl and heroin being admitted through [facility] for stabilization of opioid withdrawal syndrome. Currently patient is having shaking/tremor, involuntary twitchings, restlessness, anxiety and goosebump. Denies diarrhea, chills. She has been tested positive for chronic hepatitis C in the past. She was sober of opioids for 2 years after the previous admission through [facility] in [facility]. 1. Acute opioid withdrawal due to fentanyl and heroine IV use and dependence: She has been admitted as per [facility] protocol for medical stabilization. Started on the order set. Labs reviewed. U tox shows cannabinoids. Viral hepatitis profile pending Mild hypokalemia. Potassium being replaced. 2. Polysubstance use and dependence including opioids, crack cocaine and nicotine: Denies use of benzodiazepines alcohol. 3. Nicotine dependence: On nicotine patch. Chronic hepatitis C: Hepatitis C antibody is positive. Needs further hepatitis C workup including hepatitis C viral load quantitative and treatment as an outpatient. DVT prophylaxis, moderate risk: On heparin 5000 units subcut twice daily and bilateral SCDs. 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
[2017-01-25] MEDS: traZODone 50 MG Tablet PO (21:15)
--- NOTE | 2017-01-26 01:17 | PCM.DC ---
- Discharge Diagnoses Current Active Problems: Current Active and Chronic Problems Chronic hepatitis C (Acute) Opioid dependence with withdrawal (Acute) Cocaine abuse (Chronic) Nicotine dependence (Chronic) Polysubstance (including opioids) dependence w/o physiol dependence (Chronic) You will use the following diet at home:: No restrictions Discharge Activity: Return to Normal Activity Allergies/Adverse Reactions: Allergies Sulfa (Sulfonamide Antibiotics) Allergy (Verified 01/23/17 12:05) Rash Primary Care Physician: Care Physician,No Primary [Primary Care Provider] - Proposed Discharge Date: 01/26/17
--- NOTE | 2017-01-26 01:17 | PCM.DC.SUM ---
Discharge Date and Diagnosis - Problem List Patient Problems: Active and Suspected Problems Chronic hepatitis C (Acute) Opioid dependence with withdrawal (Acute) Date of Admission: 01/23/17 Date of Discharge: 01/26/17 - Primary Discharge Diagnosis Active and Suspected Problems Chronic hepatitis C (Acute) Opioid dependence with withdrawal (Acute) - Secondary Discharge Diagnosis Chronic Problems Cocaine abuse (Chronic) Nicotine dependence (Chronic) Polysubstance (including opioids) dependence w/o physiol dependence (Chronic) Hospital Course and Treatment Summary of Care Provided: The patient is a 51 year old F with history of polysubstance use including IV fentanyl and heroin presented with symptom complex opiate withdrawal. She wants to quit use of the drug. She was admitted to the hospital. Patient was placed on the [facility] opiate withdrawal protocol for medical stabilization and monitor closely in the hospital. He has not improved and remains clinically stable she is recommended to follow-up for outpatient drug rehabilitation program. b Discharge Diet: No Restrictions Discharge Activity: Return to Normal Activity Primary Care Physician: Care Physician,No Primary [Primary Care Provider] - Disposition: Home Patient Condition:: Good Meaningful Use Info Meaningful Use Diagnoses (Choose all that apply): None applicable
[2017-01-26 04:47] VITALS: BP 120/69; PULSE 63; RESP 18; TEMP 35.5; O2SAT 100
[2017-01-26] MEDS: Buprenorphine HCl 2 MG TAB.SUBL SL (04:52)
== END 2017-01-26 05:30 | disposition home or self-care (01) | DRG 773 ==
LOC: MS2 05-28 10:28
PROVIDERS: Admitting Provider Internal Medicine; Visit Provider Internal Medicine
DX: F11.23 Opioid dependence with withdrawal (principal); B18.2 Chronic viral hepatitis C; F17.200 Nicotine dependence, unspecified, uncomplicated; E87.6 Hypokalemia; F14.10 Cocaine abuse, uncomplicated
CPT/HCPCS: 80053; 80074; 80307; 80320; 81001; 82150; 83690; 84703; 85025; 85610; 93005; 99218; G0378; G0379; G0480